=== PATIENT | male | born 1980 | race Two or more races ===

== ENCOUNTER 2022-11-01 11:33 | Emergency (ER) | payer MEDICAID, OTHER ==
[~2022-11-01] VITALS: Ht 180.3 cm; Wt 81.8 kg
[2022-11-01 11:40] VITALS: BP 132/87
[2022-11-01] MEDS ORDERED: SODIUM CHLORIDE 0.9% 1,000 ML IV ONE (12:00)
[2022-11-01 12:27] LABS: Basophils # (auto) 0 10 ^3/uL (0-0.2); Basophils % (auto) 0.2 % (0.0-2.0); Eosinophils # (auto) 0 10 ^3/uL (0-0.8); Eosinophils % (auto) 0.1 % (0.0-7.0); Hematocrit 47.1 % (41.0-53.0); Hemoglobin 16.2 g/dL (13.5-17.5); Lymphocytes # (auto) 0.9 10 ^3/uL (0.4-5.4); Lymphocytes % (auto) 5.8 % (10.0-50.0); Mean Corpuscular Hemoglobin 30.3 pg (28.0-32.0); Mean Corpuscular Hgb Conc. 34.4 g/dL (32.0-36.0); Monocytes # (auto) 0.9 10 ^3/uL (0-1.3); Monocytes % (auto) 5.9 % (0.0-12.0); Neutrophils # (auto) 13.6 10 ^3/uL (1.6-8.6); Nucleated Red Blood Cells % 0.1 %; Red Blood Cells 5.35 10^6/uL (4.5-5.90); Red Cell Distribution Width 13.8 % (11.8-14.3); White Blood Cell 15.5 10^3/uL (4.4-10.8)
[2022-11-01] MEDS ORDERED: FOLIC ACID 1 MG in D5W 5% 50 ML INJ STA (12:44)
[2022-11-01] MEDS ORDERED: THIAMINE 100mg/ml INJ (200mg/2ml VIAL) IV ONE (12:45)
[2022-11-01] MEDS ORDERED: MULTIPLE VITAMIN TAB PO ONE (12:45)
[2022-11-01] MEDS ORDERED: LORazepam 2MG/ML-1ML VIAL IV ONE (12:45)
[2022-11-01] MEDS ORDERED: SODIUM CHLORIDE 0.9% 1,000 ML IVB ONE (12:45)
[2022-11-01 12:55] LABS: Albumin 4.1 g/dL (3.4-5.0); Calcium 9.3 mg/dL (8.5-10.1); Potassium 4.1 mmol/L (3.5-5.1)
[2022-11-01] MEDS ORDERED: PANTOPRAZOLE 40 MG/10 ML VIAL INJ IV ONE (13:00)
[2022-11-01 13:01] LABS: BUN/Creatinine Ratio 9.9 (10.0-20.0); Bilirubin, Total 1.4 mg/dL (0.2-1.0); Total Protein 8.4 g/dL (6.4-8.2)
[2022-11-01 13:27] LABS: Magnesium 2.4 mg/dL (1.6-2.6)
[2022-11-02] MEDS ORDERED: FOLIC ACID 1 MG TAB PO SCH (10:00)
== END 2022-11-01 14:39 | disposition left against medical advice (07) ==
LOC: ER 11:33 → EDBD 11:33 → ER 14:39
DX: K92.0 Hematemesis (principal); Z79.899 Other long term (current) drug therapy
CPT/HCPCS: 36415; 80053; 80320; 83735; 85025; 86850; 86900; 86901; 96360; 96361; 99283; J7030; J7060